=== PATIENT | female | born 1965 | race American Indian/Alaskan Native ===

== ENCOUNTER 2017-08-25 23:12 | Emergency (ER) | payer SELFPAY ==
[2017-08-25 23:12] VITALS: BMI 29.8
== END 2017-08-25 23:49 | disposition left against medical advice (07) ==
LOC: ED 23:12
DX: Z02.89 Encounter for other administrative examinations (principal); S89.91XA Unspecified injury of right lower leg, initial encounter

== ENCOUNTER 2017-08-26 00:22 | Emergency (ER) | payer SELFPAY ==
[2017-08-26 00:22] VITALS: BMI 29.8
[2017-08-26 02:02] VITALS: TEMP 97.2
--- NOTE | 2017-08-26 03:03 | ED PDOC ---
Arrival/HPI - General Chief Complaint: Lower Extremity Problem/Injury Time Seen by Provider: 08/26/17 01:49 Historian: Patient - History of Present Illness Narrative History of Present Illness (Text): 08/26/17 02:00 52 year old female, with no significant past medical history, presents to the emergency department complaining right knee discomfort s/p trip and fall. Patient reports twisting her right knee and is able to ambulate, but with some discomfort when doing so. No other injuries reported. Patient denies any LOC, fever, chills, chest pain, shortness of breath, nausea, vomiting, diarrhea, urinary symptoms, back pain, neck pain, headache, dizziness, or any other complaints. PMD: None Symptom Onset: Sudden Symptom Course: Unchanged Activities at Onset: Light Context: Tripped Past Medical History - Provider Review Nursing Documentation Reviewed: Yes - Reproductive Menopause: Yes - Psychiatric Hx Substance Use: No - Surgical History Hx Section: Yes - Anesthesia Hx Anesthesia: No Family/Social History - Physician Review Nursing Documentation Reviewed: Yes Family/Social History: No Known Family HX Smoking Status: Never Smoked Hx Alcohol Use: No Hx Substance Use: No Allergies/Home Meds Allergies/Adverse Reactions: Allergies shellfish derived Allergy (Verified 08/26/17 01:57) ANAPHYLAXIS Review of Systems - Physician Review All systems were reviewed & negative as marked: Yes - Review of Systems Constitutional: absent: Fevers, Other (Chills) Respiratory: absent: SOB Cardiovascular: absent: Chest Pain Gastrointestinal: absent: Diarrhea, Nausea, Vomiting Genitourinary Female: absent: Dysuria, Frequency, Hematuria Musculoskeletal: Other (right knee discomfort ). absent: Back Pain, Neck Pain Neurological: absent: Headache, Dizziness, Other (LOC) Physical Exam Vital Signs Reviewed: Yes Vital Signs Temp Pulse Resp BP Pulse Ox 08/26/17 01:58 97.2 F L 98 H 18 147/83 100 Temperature: Afebrile Blood Pressure: Normal Pulse: Regular Respiratory Rate: Normal Appearance: Positive for: Well-Appearing, Non-Toxic, Comfortable Pain Distress: None Mental Status: Positive for: Alert and Oriented X 3 - Systems Exam Head: Present: Atraumatic, Normocephalic Pupils: Present: PERRL Extroacular Muscles: Present: EOMI Conjunctiva: Present: Normal Mouth: Present: Moist Mucous Membranes Neck: Present: Normal Range of Motion Respiratory/Chest: Present: Clear to Auscultation, Good Air Exchange. No: Respiratory Distress, Accessory Muscle Use Cardiovascular: Present: Regular Rate and Rhythm, Normal S1, S2. No: Murmurs Abdomen: No: Tenderness, Distention, Peritoneal Signs Back: Present: Normal Inspection Upper Extremity: Present: Normal Inspection. No: Cyanosis, Edema Lower Extremity: Present: Normal Inspection, Normal ROM (FROM x4 intact), Tenderness (Palpable tenderness to the right knee region with some dicomfort at flexion. ), Neurovascularly Intact. No: Edema, Swelling ((-) to right knee), Deformity (to right knee) Neurological: Present: GCS=15, CN II-XII Intact, Speech Normal Skin: Present: Warm, Dry, Normal Color. No: Rashes Psychiatric: Present: Alert, Oriented x 3, Normal Insight, Normal Concentration Medical Decision Making ED Course and Treatment: 08/26/17 02:03 Impression: 52 year old female, presents complaining of right knee discomfort s/p trip and fall. Plan: -- Motrin tab -- Knee w/ Patella Right 3 View X-ray. -- Reassess and disposition Progress Notes: 08/26/17 03:40 Knee w/ Patella Right 3 View X-ray. Impression: As read by me, degenerative changes. No acute fractures. - RAD Interpretation Radiology Orders: 08/26/17 02:02 KNEE W PATELLA RIGHT 3 VIEW [RAD] Stat - Medication Orders Current Medication Orders: Discontinued Medications Ibuprofen (Motrin Tab) 800 mg PO STAT STA Stop: 08/26/17 02:03 Last Admin: 08/26/17 02:16 Dose: 800 mg - Scribe Statement The provider has reviewed the documentation as recorded by the Margarita Cordoba Provider Scribe Attestation: All medical record entries made by the Maryibkris were at my direction and personally dictated by me. I have reviewed the chart and agree that the record accurately reflects my personal performance of the history, physical exam, medical decision making, and the department course for this patient. I have also personally directed, reviewed, and agree with the discharge instructions and disposition. Disposition/Present on Arrival - Present on Arrival Any Indicators Present on Arrival: No History of DVT/PE: No History of Uncontrolled Diabetes: No Urinary Catheter: No History of Decub. Ulcer: No History Surgical Site Infection Following: None - Disposition Have Diagnosis and Disposition been Completed?: Yes Diagnosis: Knee sprain Disposition: HOME/ ROUTINE Disposition Time: 03:43 Patient Plan: Discharge Condition: GOOD Discharge Instructions (ExitCare): Knee Sprain (DC) Additional Instructions: Maintain knee immobilizer/no weight bearing on the affected area/use crutches/ take meds as prescribed/follow up with the orthopedist this week Prescriptions: Naproxen [Naprosyn] 500 mg PO BID PRN #14 tab PRN Reason: Pain Referrals: Jarrett Grove MD [Staff Provider] - Follow up with primary Forms: [employer] (Ukrainian)
[2017-08-26 05:11] VITALS: BP 138/82; PULSE 86; RESP 20; O2SAT 98
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
== END 2017-08-26 06:22 | disposition home or self-care (01) ==
LOC: ED 00:22
DX: S83.91XA Sprain of unspecified site of right knee, initial encounter (principal); W01.0XXA Fall on same level from slipping, tripping and stumbling without subsequent striking against object, initial encounter; Y92.480 Sidewalk as the place of occurrence of the external cause

== ENCOUNTER 2017-09-24 02:25 | Emergency (ER) | payer SELFPAY ==
[2017-09-24 02:32] VITALS: BMI 30.7
[2017-09-24 02:37] VITALS: O2SAT 100
--- NOTE | 2017-09-24 02:56 | ED PDOC ---
Arrival/HPI - General Chief Complaint: Trauma Time Seen by Provider: 09/24/17 02:38 Historian: Patient - History of Present Illness Narrative History of Present Illness (Text): 09/24/17 02:56 Emily Rosa is a 52 year old who presents to the Emergency department complaining of right ankle pain status post fall. Patient states she tripped and fell while walking today, injuring her right ankle. Patient denies any decreased range of motion, weakness/numbness/tingling in the extremity, or any other complaints. Time/Duration: Other (tonight) Symptom Onset: Gradual Symptom Course: Unchanged Activities at Onset: Light Context: Tripped Past Medical History - Provider Review Nursing Documentation Reviewed: Yes - Infectious Disease Hx of Infectious Diseases: None - Psychiatric Hx Substance Use: No - Surgical History Hx Section: Yes - Anesthesia Hx Anesthesia: No Family/Social History - Physician Review Nursing Documentation Reviewed: Yes Family/Social History: Unknown Family HX Smoking Status: Never Smoked Hx Alcohol Use: No Hx Substance Use: No Allergies/Home Meds Allergies/Adverse Reactions: Allergies shellfish derived Allergy (Verified 09/24/17 02:32) ANAPHYLAXIS Home Medications: Home Meds Medication Instructions Recorded Confirmed No Known Home Med 09/24/17 09/24/17 Review of Systems - Physician Review All systems were reviewed & negative as marked: Yes - Review of Systems Constitutional: Normal. absent: Fevers Eyes: Normal ENT: Normal Respiratory: Normal. absent: SOB, Cough Cardiovascular: Normal. absent: Chest Pain Gastrointestinal: Normal. absent: Abdominal Pain, Diarrhea, Nausea, Vomiting Genitourinary Female: Normal. absent: Dysuria, Frequency, Hematuria, Urine Output Changes Musculoskeletal: Arthralgias (+right ankle pain). absent: Back Pain, Neck Pain Skin: Normal. absent: Rash Neurological: Normal. absent: Headache, Dizziness Endocrine: Normal Hemo/Lymphatic: Normal Psychiatric: Normal Physical Exam Vital Signs Reviewed: Yes Vital Signs Temp Pulse Resp BP Pulse Ox 09/24/17 06:39 98.7 F 77 16 139/82 100 09/24/17 04:26 84 18 118/62 99 09/24/17 02:36 98.3 F 73 18 118/81 100 Temperature: Afebrile Blood Pressure: Normal Pulse: Regular Respiratory Rate: Normal Appearance: Positive for: Well-Appearing, Non-Toxic, Comfortable Pain Distress: None Mental Status: Positive for: Alert and Oriented X 3 - Systems Exam Head: Present: Atraumatic, Normocephalic Pupils: Present: PERRL Extroacular Muscles: Present: EOMI Conjunctiva: Present: Normal Mouth: Present: Moist Mucous Membranes Neck: Present: Normal Range of Motion Respiratory/Chest: Present: Clear to Auscultation, Good Air Exchange. No: Respiratory Distress, Accessory Muscle Use Cardiovascular: Present: Regular Rate and Rhythm, Normal S1, S2. No: Murmurs Abdomen: No: Tenderness, Distention, Peritoneal Signs Back: Present: Normal Inspection Upper Extremity: Present: Normal Inspection. No: Cyanosis, Edema Lower Extremity: Present: Normal Inspection. No: Edema Neurological: Present: GCS=15, CN II-XII Intact, Speech Normal Skin: Present: Warm, Dry, Normal Color. No: Rashes Psychiatric: Present: Alert, Oriented x 3, Normal Insight, Normal Concentration Medical Decision Making ED Course and Treatment: 09/24/17 02:56 Impression: 52 year old female complaining of right ankle pain s/p fall. Differential Diagnosis included but are not limited to: fracture vs. sprain vs. contusion Plan: -- XR Right Ankle -- Reassess and disposition Prior Visits: Notes and results from previous visits were reviewed. On 08/26/2017, pt was seen in the Emergency department s/p fall with right knee pain. Pt was d/c home. Progress Notes: 09/24/17 03:57 Reviewed radiology, XR Right Ankle shows no acute processes/fracture. - RAD Interpretation Radiology Orders: 09/24/17 02:56 ANKLE RIGHT 3 VIEWS ROUTINE [RAD] Stat Rn Clinical Documentation: ED Physician - Medication Orders Current Medication Orders: Discontinued Medications Acetaminophen (Tylenol 325mg Tab) 650 mg PO STAT STA Stop: 09/24/17 06:24 Last Admin: 09/24/17 06:29 Dose: 650 mg - Scribe Statement The provider has reviewed the documentation as recorded by the Margarita Fulton Provider Scribe Attestation: All medical record entries made by the Scribe were at my direction and personally dictated by me. I have reviewed the chart and agree that the record accurately reflects my personal performance of the history, physical exam, medical decision making, and the department course for this patient. I have also personally directed, reviewed, and agree with the discharge instructions and disposition. Disposition/Present on Arrival - Present on Arrival Any Indicators Present on Arrival: No History of DVT/PE: No History of Uncontrolled Diabetes: No Urinary Catheter: No History of Decub. Ulcer: No History Surgical Site Infection Following: None - Disposition Have Diagnosis and Disposition been Completed?: Yes Diagnosis: Right ankle sprain Disposition: HOME/ ROUTINE Disposition Time: 06:30 Condition: GOOD Discharge Instructions (ExitCare): Ankle Sprain Additional Instructions: use air cast 4 to 5 days Forms: [employer] (Mongolian)
[2017-09-24 06:40] VITALS: BP 139/82; PULSE 77; RESP 16; TEMP 98.7
--- NOTE | 2017-09-24 08:17 | RAD ---
PROCEDURE: Right Ankle Radiographs. HISTORY: fall COMPARISON: None FINDINGS: BONES: Normal. No fracture. JOINTS: Normal. No osteoarthritis. Ankle mortise maintained. Talar dome intact SOFT TISSUES: Normal. OTHER FINDINGS: None. IMPRESSION: Normal right ankle radiographs.
== END 2017-09-24 06:39 | disposition home or self-care (01) ==
LOC: ED 02:25
DX: S93.401A Sprain of unspecified ligament of right ankle, initial encounter (principal); W01.0XXA Fall on same level from slipping, tripping and stumbling without subsequent striking against object, initial encounter; Y93.01 Activity, walking, marching and hiking; Y92.410 Unspecified street and highway as the place of occurrence of the external cause

== ENCOUNTER 2017-09-29 00:09 | Emergency (ER) | payer OTHER ==
[2017-09-29 00:10] VITALS: BMI 30.7
[2017-09-29 00:27] VITALS: RESP 18; TEMP 98.3; O2SAT 96
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
[2017-09-29] MEDS ORDERED: Oxycodone/Acetaminophen 5/325 mg Tab PO STA (02:11)
[2017-09-29 03:19] VITALS: BP 135/60; PULSE 88
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
== END 2017-09-29 02:20 | disposition home or self-care (01) ==
LOC: ED 00:09
DX: S83.91XA Sprain of unspecified site of right knee, initial encounter (principal); S82.001A Unspecified fracture of right patella, initial encounter for closed fracture; V49.9XXA Car occupant (driver) (passenger) injured in unspecified traffic accident, initial encounter
CPT/HCPCS: 73562; 73590; 96372; 99284; J1885